=== PATIENT | female | born 1995 | race Caucasian/White ===

== ENCOUNTER 2023-09-11 17:21 | Emergency (ER) | payer SELFPAY ==
[2023-09-11 17:52] VITALS: BP 154/94; PULSE 97; RESP 18; TEMP 36.6; O2SAT 100; BMI 20.3
--- NOTE | 2023-09-11 18:05 | PC.NURSE ---
Provider Vimal and adult neuropsychologist Kathrine made aware of patient presentation. Verbal order to irrigate eyes. Patient taken to eye wash station to irrigate eyes.
== END 2023-09-11 21:20 | disposition left against medical advice (07) ==
PROVIDERS: Emergency Provider Emergency Medicine
CPT/HCPCS: 99281

== ENCOUNTER 2023-10-08 15:14 | Emergency (ER) | payer SELFPAY ==
--- NOTE | 2023-10-08 15:23 | DI.US.S_ITS ---
PROCEDURE: US OB <= 14 WEEKS FETUS INDICATIONS: r/o ectopic OUTSIDE/PRIOR DATING DATA: Last menstrual period (LMP): 07/30/2023. LMP-based estimated date of delivery (LIZ): 05/05/2024. First dating scan (date and location): 10/08/2023. Estimated date of delivery (LIZ) from first dating scan: 05/15/2019. TECHNIQUE: Real-time scanning was performed of the fetus and maternal pelvic organs, with image documentation. Endovaginal scanning was also performed to better visualize the fetus and maternal ovaries. COMPARISON: None. FINDINGS: Embryo: Gestational sac is seen with a pole. [place]-rump length measures 2.1 centimeters, consistent with 8 weeks and 5 days. Heart rate: 180 Maternal organs: Ovaries are within normal limits. IMPRESSION: Single live intrauterine consistent with 8 weeks and 5 days. We strive to produce accurate, complete, and clear reports of imaging services. To assist us in improving patient care, this report was composed using standard report templates and voice recognition software. Therefore, it may contain abnormal punctuation, insertions and/or omissions. Occasional wrong-word or sound-alike substitutions may occur. Though we review the report and make efforts to correct it, we do recommend that the report be read carefully in proper context to recognize any text inaccuracies. Dictated by: Kody Carr M.D. on 10/08/2023 at 16:06 Approved by: Kody Carr M.D. on 10/08/2023 at 16:07
[2023-10-08 15:29] VITALS: PULSE 91; O2SAT 99
[2023-10-08 15:30] VITALS: PULSE 95; O2SAT 99
[2023-10-08 15:33] VITALS: BP 156/92; PULSE 95; RESP 17; TEMP 36.9; O2SAT 99; BMI 20.3
[2023-10-08 15:36] VITALS: BP 156/92; PULSE 93; O2SAT 99
[2023-10-08 15:45] LABS: Add Manual Diff / Slide Review NO; Basophils Absolute Auto 100 /uL (0-100); Basophils Percent Auto 0.5 % (0-2); Eosinophils Absolute Auto 200 /uL (0-450); Eosinophils Percent Auto 2.3 % (2-4); Hematocrit 35.2 % (36-46); Hemoglobin 12.2 g/dL (12.0-16.0); Lymphocytes Absolute Auto 2200 /uL (1100-4500); Lymphocytes Percent Auto 20.6 % (25-40); Mean Corpuscular HGB Conc 34.7 % (30-36); Mean Corpuscular Hemoglobin 31.5 PG (26-34); Mean Corpuscular Volume 90.8 fL (80-100); Monocytes Absolute Auto 700 /uL (0-900); Monocytes Percent Auto 6.7 % (3-14); Neutrophils Absolute Auto 7300 /uL (1500-7000); Neutrophils Percent Auto 69.9 % (50-75); Platelet Count 305 X10^3/uL (150-400); Red Blood Cell Count 3.87 X10^6/uL (4.0-5.2); Red Cell Distribution Width 12.9 % (11.6-14.8); White Blood Cell Count 10.5 X10^3/uL (4.5-11.0)
[2023-10-08 15:55] LABS: Alanine Aminotransferase 19 IU/L (<35); Albumin 4.3 g/dL (3.5-5.0); Albumin Globulin Ratio 1.3 (1.0-2.8); Alkaline Phosphatase 40 U/L (38-126); Aspartate Aminotransferase 22 IU/L (14-36); BUN Creatinine Ratio 13.5 (6-22); Bilirubin Total 0.3 mg/dL (0.2-1.3); Blood Urea Nitrogen 7 mg/dL (7-17); Calcium 9.8 mg/dL (8.4-10.2); Carbon Dioxide 17 mmol/L (22-32); Chloride 107 mmol/L (98-107); Estimated Glomerular Filt Rate > 60 mL/min (>60); Globulin 3.2 g/dL (1.7-4.1); Glucose 97 mg/dL (70-100); HEMOLYSIS < 15 (0-50); Potassium 3.6 mmol/L (3.4-5.1); Sodium 136 mmol/L (137-145); Total Protein 7.5 g/dL (6.3-8.2)
--- NOTE | 2023-10-08 16:15 | ED.PREGNANCY ---
HPI - General Chief complaint: Vaginal Bleeding Stated complaint: sent by MD, possible ectopic Time Seen by Provider: 10/08/23 16:14 Source: patient Mode of arrival: Ambulatory Limitations: no limitations History of Present Illness HPI Narrative: 28-year-old female patient states last menstrual period was around August 18. Patient states she has had 3 positive test most recently 4 days ago. Has had 3 weeks of intermittent vaginal spotting and bleeding sometimes with clots. She states kind of intermittent will sometimes just happen other times when she is urinating. Patient states she has also had a little bit of right-sided pain with these episodes. No fevers, no chest pain, no shortness of breath no passing out or lightheadedness. No new flank pain. No other GI or urinary symptoms reported. [facility] needed to follow up and have a ultrasound, she states that they did not have any available yesterday. She has not had an ultrasound at this point but was told to be evaluated to rule out ectopic. 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 States no prior pregnancies. Occasional smoker, occasional alcohol, history of marijuana no other recreational or IV drugs. Patient is not established for any care. Related Data Allergies Allergy/AdvReac Type Severity Reaction Status Date / Time doxycycline Allergy Chest Pain Verified 10/08/23 15:33 Review of Systems Review of Systems ROS Unobtainable: All systems reviewed & are unremarkable except as noted in HPI and below Exam Narrative Exam Narrative: GENERAL: Alert and oriented x three, female in mild distress. HEENT: Head normocephalic, atraumatic, EOMI, pupils reactive, face symmetric, moist mucous membranes NECK: Supple, full range of motion CARDIOVASCULAR: Regular rate and rhythm without murmurs, rubs or gallops. RESPIRATORY: Breath sounds equal bilaterally, no wheezes rales or rhonchi. ABDOMEN: Soft, nontender. Normoactive bowel sounds all 4 quadrants. No guarding or rebound, rigidity, no mass : No CVA tenderness EXTREMITIES: Normal range of motion, no clubbing or edema. Neurovascularly intact NEUROLOGICAL: Cranial nerves II through XII grossly intact. Moving all extremities SKIN: Warm, dry, no petechiae, no rashes or lesions. Initial Vital Signs Initial Vital Signs: Vital Signs Pulse Rate 91 H 10/08/23 15:29 Pulse Oximetry 99 10/08/23 15:29 Course Orders Ordered: ED Orders 10/08/23 15:23 US OB <= 14 weeks fetus Stat 10/08/23 15:35 ABO RH Type Stat Complete Blood Count AUTO DIFF Stat Comprehensive Metabolic Panel Stat HCG Quantitative /Beta subunit Stat 10/08/23 15:55 Urine Microscopic Stat Vital Signs Vital signs: Vital Signs - 8 hr 10/08/23 15:29 10/08/23 15:30 10/08/23 15:33 Temperature 98.4 F Pulse Rate 91 H 95 H 95 H Respiratory Rate 17 Blood Pressure 156/92 H Pulse Oximetry 99 99 99 Oxygen Delivery Method Room Air 10/08/23 15:36 10/08/23 15:36 Temperature Pulse Rate 93 H Respiratory Rate Blood Pressure 156/92 H Pulse Oximetry 99 Oxygen Delivery Method MDM - OB/Uterine Contractions Lab Data 10/08/23 15:35 10/08/23 15:35 Labs: Lab Results 10/08/23 10/08/23 Range/Units 15:35 15:55 WBC 10.5 (4.5-11.0) X10^3/uL RBC 3.87 L (4.0-5.2) X10^6/uL Hgb 12.2 (12.0-16.0) g/dL Hct 35.2 L (36-46) % MCV 90.8 (80-100) fL MCH 31.5 (26-34) PG MCHC 34.7 (30-36) % RDW 12.9 (11.6-14.8) % Plt Count 305 (150-400) X10^3/uL Neut % (Auto) 69.9 (50-75) % Lymph % (Auto) 20.6 L (25-40) % [place] % (Auto) 6.7 (3-14) % Eos % (Auto) 2.3 (2-4) % Baso % (Auto) 0.5 (0-2) % Neut # (Auto) 7300 H (0569-0491) /uL Lymph # (Auto) 2200 (0215-7015) /uL [place]pie # (Auto) 700 (0-900) /uL Eos # (Auto) 200 (0-450) /uL Baso # (Auto) 100 (0-100) /uL Sodium 136 L (137-145) mmol/L Potassium 3.6 (3.4-5.1) mmol/L Chloride 107 (98-107) mmol/L Carbon Dioxide 17 L (22-32) mmol/L BUN 7 (7-17) mg/dL Creatinine 0.52 (0.52-1.04) mg/dL Estimated GFR > 60 (>60) mL/min BUN/Creatinine Ratio 13.5 (6-22) Glucose 97 (70-100) mg/dL Calcium 9.8 (8.4-10.2) mg/dL Total Bilirubin 0.3 (0.2-1.3) mg/dL AST 22 (14-36) IU/L ALT 19 (<35) IU/L Alkaline Phosphatase 40 (38-126) U/L Total Protein 7.5 (6.3-8.2) g/dL Albumin 4.3 (3.5-5.0) g/dL Globulin 3.2 (1.7-4.1) g/dL Albumin/Globulin Ratio 1.3 (1.0-2.8) HCG, Quant 37411 mIU/mL Urine RBC 0-1/hpf (0-5/HPF) Urine WBC 0-1/hpf (0-5/HPF) Ur Squamous Epith Cells 0-1 /hpf (0-5/HPF) Urine Bacteria Occasional (0-1) (None) Ur Culture Indicated? Cult not indicated Vol Urine Centrifuged 10ml (spun) Blood Type A Positive Urine Dip Bedside Urine Glucose Negative Bedside Urine Bilirubin - Negative Bedside Urine Ketone - Negative Urine Specific [place] 1.005 Bedside Urine Occult Blood +/- Bedside Urine pH 6.5 Bedside Urine Protein - Negative Bedside Urine Urobilinogen - Negative Bedside Urine Nitrite - Negative Bedside Urine Leukocytes - Negative Esterase Imaging Data US - OB: Radiologist's Impression: [address] [address] Ultrasound Report Signed Patient: Miracle Cheatham MR#: [id number] : 1995 Acct:[id number] Age/Sex: 28 / F Date of Service: 10/08/23 Loc: ED Accession Number: [id number] Procedure: US OB <= 14 weeks fetus Ordering Provider: Luh Loya D.O. PROCEDURE: US OB <= 14 WEEKS FETUS INDICATIONS: r/o ectopic OUTSIDE/PRIOR DATING DATA: Last menstrual period (LMP): 07/30/2023. LMP-based estimated date of delivery (LIZ): 05/05/2024. First dating scan (date and location): 10/08/2023. Estimated date of delivery (LIZ) from first dating scan: 05/15/2019. TECHNIQUE: Real-time scanning was performed of the fetus and maternal pelvic organs, with image documentation. Endovaginal scanning was also performed to better visualize the fetus and maternal ovaries. COMPARISON: None. FINDINGS: Embryo: Gestational sac is seen with a pole. [place]-rump length measures 2.1 centimeters, consistent with 8 weeks and 5 days. Heart rate: 180 Maternal organs: Ovaries are within normal limits. IMPRESSION: Single live intrauterine consistent with 8 weeks and 5 days. We strive to produce accurate, complete, and clear reports of imaging services. To assist us in improving patient care, this report was composed using standard report templates and voice recognition software. Therefore, it may contain abnormal punctuation, insertions and/or omissions. Occasional wrong-word or sound-alike substitutions may occur. Though we review the report and make efforts to correct it, we do recommend that the report be read carefully in proper context to recognize any text inaccuracies. Dictated by: Kody Carr M.D. on 10/08/2023 at 16:06 Approved by: Kody Carr M.D. on 10/08/2023 at 16:07 [facility] Narrative Medical decision making narrative: 28-year-old female with 3 weeks of vaginal bleeding and spotting and a little bit of right-sided pain. Labs show hemoglobin of 12.2 white count of 10.5 platelets of 305. Chemistries show a sodium 136 CO2 of 17 potassium and chloride are normal range BUN normal with normal renal function glucose of 97 normal LFTs. HCG quant is 99, 976. Patient is A positive. ultrasound shows single live intrauterine consistent with 8 weeks and 5 days, heart rate is 180 ovaries are within normal limits there is a gestational sac with a pole. Discussed with patient no signs currently of ectopic , does have a live intrauterine patient is not particularly tender on exam. Suspect she has been having some vaginal bleeding with her . Discussed options with patient she can follow up with lai mascorro we will also give options for follow up with OBGYN we did discuss if she is having increasing pain bleeding or other concerning changes she can return to the ER for re-evaluation. Discharge Plan Departure Patient Disposition: Home Clinical Impression: Vaginal bleeding in Instructions: DI for Vaginal Bleeding During Activity Restrictions/Additional Instructions: Your ultrasound today does show a live intrauterine consistent with 8 weeks and 5 days, based on your scan date of delivery would be May 14, 2024. There is a slight discrepancy of about a week between your dates based on your last menstrual period and the ultrasound. Please call the contact included below to set up follow up for care or if you prefer [facility] can [facility] I would recommend pelvic rest, no heavy lifting, no sexual activity. You can use pads for vaginal bleeding, please do not use tampons. Please return for rapidly worsening abdominal back or flank pain, increasing bleeding, large clots, going through more than a pad an hour, lightheadedness or passing out, persistent vomiting or other new or concerning changes. Referrals: Miscellaneous,DoctorMD [Primary Care Provider] - Meg Mathew DO [Physician] - Stand Alone Forms: Patient Portal/API
[2023-10-08 16:36] LABS: HCG Quantitative /Beta subunit 99976 mIU/mL
[2023-10-08 16:42] LABS: Bacteria Urine Occasional (0-1); RBC Urine 0-1/HPF (0-5/HPF); Squamous Epithelial Cell Urine 0-1 /HPF (0-5/HPF); Urine Volume 10mL (spun); WBC Urine 0-1/HPF (0-5/HPF)
[2023-10-08 16:43] LABS: Culture Indicated Urine Cult Not Indicated
== END 2023-10-08 16:58 | disposition home or self-care (01) ==
PROVIDERS: Emergency Provider Emergency Medicine
DX: O20.9 Hemorrhage in early pregnancy, unspecified (principal); Z3A.08 8 weeks gestation of pregnancy
CPT/HCPCS: 36415; 76801; 80053; 81003; 81015; 84702; 85025; 86900; 86901; 99283; 99284